=== PATIENT | male | born 1970 | race Caucasian/White ===

== ENCOUNTER 2019-02-20 11:23 | Emergency (ER) | payer BC, OTHER ==
[2019-02-20] MEDS ORDERED: Metoclopramide IV* 5 MG/ML 2 ML VIAL IV ONE (11:26)
[2019-02-20] MEDS ORDERED: Famotidine IV* 10 MG/ML 2 ML (20 mg) IV SLOW PU ONE (11:27)
[2019-02-20] MEDS ORDERED: Meclizine TAB* 12.5 MG PO ONE (11:38)
[2019-02-20] MEDS: NS 0.9% 1000 ML** 2,000 ML IV ONE (11:45)
[2019-02-20 11:53] LABS: ABS Lymphocytes 0.7 10^3/ul (1.0-4.8); ABS Monocytes 0.4 10^3/ul (0-0.8); ABS Neutrophils 6.5 10^3/ul (1.5-7.7); Eosinophil % 0.2 %; Hematocrit 44 % (42-52); Hemoglobin 14.9 g/dL (14.0-18.0); Lymphocyte % 9.6 %; Mean Corpuscular HGB Conc 34 g/dL (31-36); Mean Corpuscular Hemoglobin 31 pg (27-31); Mean Corpuscular Volume 91 fL (80-94); Mean Platelet Volume 7.3 fL (7.4-10.4); Platelet Count 240 10^3/uL (150-450); Red Blood Count 4.85 10^6 /uL (4.18-5.48); Red Cell Distribution Width 13 % (10.5-15); White Blood Count 7.7 10^3/uL (3.5-10.8)
[2019-02-20 12:07] LABS: ALT 27 U/L (7-52); AST 22 U/L (13-39); Albumin 4.5 g/dL (3.2-5.2); Albumin/Globulin Ratio 1.5 (1-3); Alkaline Phosphatase 53 U/L (34-104); Anion Gap 7 mmol/L (2-11); BUN/Creatinine Ratio 23.6 (8-20); Blood Urea Nitrogen 25 mg/dL (6-24); C Reactive Protein < 1.00 mg/L (<8.01); CO2 Carbon Dioxide 27 mmol/L (22-32); Calcium 9.7 mg/dL (8.6-10.3); Chloride 104 mmol/L (101-111); EGFR African American 89.5 (>60); Glucose 135 mg/dL (70-100); Potassium 4.8 mmol/L (3.5-5.0); Sodium 138 mmol/L (135-145); Total Protein 7.5 g/dL (6.4-8.9)
--- NOTE | 2019-02-20 13:35 | ED ---
Dizziness - HPI Summary HPI Summary: Patient is a 48-year-old male with a history of brain tumor from 2006 presenting to the ED with acute onset severe dizziness this morning while sitting at a meeting. He states this is happened to him once before approximately 4 years ago and he was diagnosed with vertigo. At that time, he was transferred from a local emergency room to [place], [place] where he was given meclizine and improved. However due to his brain tumor from 2006, the hospital sent him to [place] instead of treating him there or scanning him. He did have an MRI most recently in November/2018 from [facility], [place]. He is a current patient of Dr. Timothy Tavares MD [phone] from [facility]. He continues to see Dr. Tavares, but has had no neuro sxs or problems with the brain tumor (resected) since 2006. On arrival, he endorses nausea, but denies vomiting. Denies other symptoms. Endorses dizziness worse with head motion and rotation, better with sitting still. Denies STERLING. at bedside. He has not taken any medications prior to discharge. 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 - History Of Current Complaint Chief Complaint: EDDizziness Stated Complaint: VOMITING PER EMS Time Seen by Provider: 02/20/19 11:25 Hx Obtained From: Patient, Family/Field Reimbursement Manager Onset/Duration: Suddenly Timing: Constant Severity Initially: Severe Severity Currently: Mild Character: Dizzy Aggravating Factor(s): Position Change, Change In Head Position Alleviating Factor(s): Rest, Lying Down, Closing Eyes Associated Signs And Symptoms: Positive: Nausea, Vomiting, Unsteady Gait, Inability to Walk. Negative: Diarrhea, Diaphoresis, Visual Changes - Risk Factors Cardiac Risk Factors: Negative CVA Risk Factor: Negative - Allergies/Home Medications Allergies/Adverse Reactions: Allergies Allergy/AdvReac Type Severity Reaction Status Date / Time No Known Allergies Allergy Verified 02/20/19 11:48 Home Medications: Home Medications Simvastatin (NF) [Zocor (NF)] 80 mg PO DAILY 02/20/19 [History Confirmed ] PMH/Surg Hx/FS Hx/Imm Hx Previously Healthy: Yes - Surgical History Surgery Procedure, Year, and Place: brain tumor removal -benign. knee sugery 2012 - Immunization History Hx Pertussis Vaccination: No Immunizations Up to Date: Yes Infectious Disease History: No Infectious Disease History: Denies: Traveled Outside the [place] in Last 30 Days - Social History Occupation: Employed Full-time Lives: With Family Alcohol Use: None Hx Substance Use: No Substance Use Type: Reports: None Hx Tobacco Use: No Smoking Status (MU): Never Smoked Tobacco Review of Systems Constitutional: Negative Negative: Fever, Chills, Fatigue, Skin Diaphoresis Negative: Photophobia, Blurred Vision, Diplopia, Drainage, Erythema Negative: Palpitations, Chest Pain Negative: Shortness Of Breath, Cough Positive: Nausea. Negative: Abdominal Pain, Diarrhea Genitourinary: Negative Positive: no symptoms reported, see HPI Neurological: Other - dizziness Psychological: Normal All Other Systems Reviewed And Are Negative: Yes Physical Exam Triage Information Reviewed: Yes Vital Signs On Initial Exam: Initial Vitals Temp Pulse Resp BP Pulse Ox 97.5 F 69 17 150/72 99 02/20/19 11:23 02/20/19 11:23 02/20/19 11:23 02/20/19 11:23 02/20/19 11:23 Vital Signs Reviewed: Yes Appearance: Positive: Well-Appearing, Well-Nourished Skin: Positive: Warm, Skin Color Reflects Adequate Perfusion Head/Face: Positive: Normal Head/Face Inspection Eyes: Positive: EOMI, EARLINE, Conjunctiva Clear Neck: Positive: Supple, No Lymphadenopathy Respiratory/Lung Sounds: Positive: Clear to Auscultation, Breath Sounds Present Cardiovascular: Positive: RRR, Pulses are Symmetrical in both Upper and Lower Extremities Musculoskeletal: Positive: Normal, Strength/ROM Intact Neurological: Positive: Speech Normal Psychiatric: Positive: Normal, Affect/Mood Appropriate AVPU Assessment: Alert - Ayde Coma Scale Best Eye Response: 4 - Spontaneous Best Motor Response: 6 - Obeys Commands Best Verbal Response: 5 - Oriented Coma Scale Total: 15 Diagnostics - Vital Signs Vital Signs Temp Pulse Resp BP Pulse Ox 02/20/19 12:53 47 19 145/89 98 02/20/19 12:45 38 17 100 02/20/19 12:23 38 13 153/92 100 02/20/19 11:23 97.5 F 69 17 150/72 99 - Laboratory Lab Results: Lab Results 02/20/19 02/20/19 02/20/19 Range/Units 11:41 11:41 11:41 WBC 7.7 (3.5-10.8) 10^3/uL RBC 4.85 (4.18-5.48) 10^6 /uL Hgb 14.9 (14.0-18.0) g/dL Hct 44 (42-52) % MCV 91 (80-94) fL MCH 31 (27-31) pg MCHC 34 (31-36) g/dL RDW 13 (10.5-15) % Plt Count 240 (150-450) 10^3/uL MPV 7.3 L (7.4-10.4) fL Neut % (Auto) 84.5 % Lymph % (Auto) 9.6 % [place] % (Auto) 5.4 % Eos % (Auto) 0.2 % Baso % (Auto) 0.3 % Absolute Neuts (auto) 6.5 (1.5-7.7) 10^3/ul Absolute Lymphs (auto) 0.7 L (1.0-4.8) 10^3/ul Absolute Monos (auto) 0.4 (0-0.8) 10^3/ul Absolute Eos (auto) 0.0 (0-0.6) 10^3/ul Absolute Basos (auto) 0.0 (0-0.2) 10^3/ul Absolute Nucleated RBC 0.0 10^3/ul Nucleated RBC % 0.0 Sodium 138 (135-145) mmol/L Potassium 4.8 (3.5-5.0) mmol/L Chloride 104 (101-111) mmol/L Carbon Dioxide 27 (22-32) mmol/L Anion Gap 7 (2-11) mmol/L BUN 25 H (6-24) mg/dL Creatinine 1.06 (0.67-1.17) mg/dL Est GFR ( Amer) 89.5 (>60) Est GFR (Non-Af Amer) 74.0 (>60) BUN/Creatinine Ratio 23.6 H (8-20) Glucose 135 H (70-100) mg/dL Lactic Acid 1.6 (0.5-2.0) mmol/L Calcium 9.7 (8.6-10.3) mg/dL Total Bilirubin 0.70 (0.2-1.0) mg/dL AST 22 (13-39) U/L ALT 27 (7-52) U/L Alkaline Phosphatase 53 (34-104) U/L C-Reactive Protein < 1.00 (<8.01) mg/L Total Protein 7.5 (6.4-8.9) g/dL Albumin 4.5 (3.2-5.2) g/dL Globulin 3.0 (2-4) g/dL Albumin/Globulin Ratio 1.5 (1-3) Lipase 20 (11.0-82.0) U/L Result Diagrams: 02/20/19 11:41 02/20/19 11:41 Lab Statement: Any lab studies that have been ordered have been reviewed, and results considered in the medical decision making process. 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 Labs obtained which are all WNL. Physical exam reveals, lungs CTA, no nystagmus noted.Patient is given meclizine , Reglan , normal saline and famotidine on arrival. This all with good improvement. Patient states he is feeling improved. 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 Recommend comparison to the previous imaging. Called the [facility] [place] to obtain records from his previous MRI in November. These records were sent over. 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 Its size and contrast enhancement characteristics have not changed compared to patient's most recent MRI scan from 10/30/17. This is consistent with stable disease over this period of time. This MRI compared with recent CT scan of today, 02/20/19 which shows no acute new intracranial abnormalities. Again, re-examination of the patient shows improvement of symptoms and is currently asymptomatic. He will be discharged home with vertigo. He is given meclizine and zofran as prescription. - Diagnoses Differential Diagnosis/HQI/PQRI: Benign Paroxysmal Positional Vertigo, Labyrinthitis, Meniere's Disease, Metabolic Abnormality Provider Diagnoses: Vertigo Discharge - Sign-Out/Discharge Documenting (check all that apply): Patient Departure Patient Received Moderate/Deep Sedation with Procedure: No - Discharge Plan Condition: Good Disposition: HOME Prescriptions: Meclizine TAB* [Antivert 12.5 TAB*] 12.5 mg PO TID PRN #12 tab MDD 3 PRN Reason: Dizziness Ondansetron ODT TAB* [Zofran 4 MG Odt TAB*] 4 mg PO Q6H PRN #12 tab.odt MDD 4 PRN Reason: Nausea Patient Education Materials: Vertigo (ED) Referrals: Roger Llanes MD [Primary Care Provider] - Additional Instructions: Meclizine 12.5 mg up to 3-5 times daily as needed for dizziness Zofran up to 3 times daily as needed for nausea, vomiting Please follow-up with your PCP If you develop any worsening or changing symptoms, return to the ED immediately or call your PCP - Billing Disposition and Condition Condition: GOOD Disposition: Home
[2019-02-20 14:14] VITALS: BP 132/82
== END 2019-02-20 14:15 | disposition home or self-care (01) ==
LOC: ED 11:23
DX: R42 Dizziness and giddiness (principal); Z86.011 Personal history of benign neoplasm of the brain
CPT/HCPCS: 36415; 70450; 80053; 83605; 83690; 85025; 86140; 96361; 96374; 96375; 99283; A9270-GY; J2765